=== PATIENT | male | born 1970 | race Caucasian/White ===

== ENCOUNTER 2020-08-18 17:51 | Outpatient (REF) | payer OTHER, SELFPAY | END 2020-08-18 17:52 | disposition home or self-care (01) | LOC: HO.LAB 17:51 | PROVIDERS: PCP Internal Medicine Medical Oncology; Visit Provider Internal Medicine | DX: Z20.828 Contact with and (suspected) exposure to other viral communicable diseases (principal) | CPT/HCPCS: C9803; U0003 ==

== ENCOUNTER 2020-12-06 12:54 | Outpatient (REF) | payer OTHER, SELFPAY ==
[2020-12-06 13:19] LABS: MANUAL DIFF FLAG NO
[2020-12-06 13:28] LABS: Basophils Percent Auto 0.7 % (0-2); Eosinophils Absolute Auto 0.1 X10*3/uL (0.0-0.4); Eosinophils Percent Auto 1.8 % (0-4); Hematocrit 47.9 % (42-52); Hemoglobin 15.6 g/dl (14.0-18.0); Imm Gran Abs Auto 0.01 X10*3/uL (0.00-0.03); Imm Gran Pct Auto 0.2 % (0.0-0.4); Lymphocytes Absolute Auto 2.1 X10*3/uL (1.2-4.9); Lymphocytes Percent Auto 37.6 % (20-40); Mean Corpuscular HGB Conc 32.6 g/dl (31.0-36.0); Mean Corpuscular Hemoglobin 30.4 pg (27.0-33.0); Mean Corpuscular Volume 93.4 fL (80-98); Mean Platelet Volume 9.5 fL (9.4-12.4); Monocytes Absolute Auto 0.5 X10*3/uL (0.1-1.2); Neutrophils Absolute Auto 2.9 X10*3/uL (2.0-8.3); Neutrophils Percent Auto 50.7 % (45-73); Platelet Count 277 X10*3/uL (160-400); Red Blood Count 5.13 X10*6/uL (4.60-5.80); White Blood Count 5.7 X10*3/uL (4.8-10.8)
[2020-12-06 14:02] LABS: Alanine Aminotransferase 27 U/L (0-40); Albumin Level 4.6 g/dL (3.5-5.0); Alkaline Phosphatase 126 U/L (39-117); Anion Gap 12 (12-20); Aspartate Amino Transferase 18 U/L (5-37); Bilirubin Total 0.9 mg/dL (0.0-1.0); Blood Urea Nitrogen 14 mg/dL (9-16); Calcium 9.3 mg/dL (8.4-10.2); Carbon Dioxide 28 mmol/L (22-29); Chloride 105 mmol/L (96-108); Cholesterol 200 mg/dL; Estimated Glomerular Filt Rate > 60; Glucose Fasting 100 mg/dL (60-99); HDL Cholesterol 62 mg/dL; LDL Cholesterol Calculated 120 mg/dl; Potassium 4.5 mmol/L (3.3-5.1); Sodium 140 mmol/L (135-145); Total Protein 7.7 g/dL (6.5-8.0); Triglycerides 94 mg/dL
[2020-12-06 14:13] LABS: Prostate Specific Antigen 0.34 ng/mL (<0.05-4.0)
== END 2020-12-06 12:55 | disposition home or self-care (01) ==
LOC: HO.LAB 12:54
PROVIDERS: PCP Internal Medicine Medical Oncology; Visit Provider Internal Medicine Medical Oncology
DX: Z00.00 Encounter for general adult medical examination without abnormal findings (principal); Z12.5 Encounter for screening for malignant neoplasm of prostate; E66.3 Overweight
CPT/HCPCS: 36415; 80053; 80061; 84153; 85025

== ENCOUNTER 2021-03-22 07:46 | Day surgery (SDC) | payer OTHER, SELFPAY ==
[2021-03-17 09:02] VITALS: BMI 25.5
--- NOTE | 2021-03-21 10:16 | P.CONAN_ITS ---
Documented by User: Seema Ellis 03/21/21 10:17 HPI - Anesthesia Eval Consult details Narrative: 50yo M for Colonoscopy [facility] Past Medical History Medical History No pertinent past medical history Surgical History Surgical History No pertinent past surgical history Social History Social History Household Members: Spouse Alcohol intake: current Alcohol intake frequency: a few times a week Patient Tobacco Use Status: Former Tobacco user Quit Date: 2011 Tobacco use type: Cigarette Use of substances other than those prescribed or required for medical reasons: No Are you DNR?: No Advance Directives: No Advance Directives Information Provided: Yes Meds Allergies Allergy/AdvReac Type Severity Reaction Status Date / Time [place] nut Allergy Unknown Unknown Verified 03/22/21 08:17 Home Medications Medication Instructions Recorded Confirmed Last Taken Type ibuprofen 03/17/21 03/17/21 Unknown History multivitamin 1 tab PO DAILY 03/17/21 03/17/21 Unknown History Exam Exam Date and Time: March 21, 2021 1016 Height,Weight and Vital Signs: Height 5 ft 7 in Weight 73.936 kg Assessment and Plan Assessment Anesthesia Assessment: Chart Reviewed Documented by User: Marlon Ricketts 03/22/21 08:59 [facility] Past Medical History Medical History No pertinent past medical history Surgical History Surgical History No pertinent past surgical history Social History Social History Household Members: Spouse Alcohol intake: current Alcohol intake frequency: a few times a week Patient Tobacco Use Status: Former Tobacco user Quit Date: 2011 Tobacco use type: Cigarette Use of substances other than those prescribed or required for medical reasons: No Are you DNR?: No Advance Directives: No Advance Directives Information Provided: Yes Meds Allergies Allergy/AdvReac Type Severity Reaction Status Date / Time [place] nut Allergy Unknown Unknown Verified 03/22/21 08:17 Home Medications Medication Instructions Recorded Confirmed Last Taken Type ibuprofen 03/17/21 03/17/21 Unknown History multivitamin 1 tab PO DAILY 03/17/21 03/17/21 Unknown History Exam Airway Mallampati Class: II TM Dist: >3cm Neck ROM: Full Loose/Missing/Broken Teeth: No Heart: [id number] Lungs: cta b/l Assessment and Plan Assessment Anesthesia Assessment: Anesthesia Plan Discussed, PAT Visit and Chart Reviewed Final Anesthetic Review NPO: Yes ASA Class: II Final Preanesthetic Review: No Changes in Pt Med Stat, Meds/Allgs Chart Reviewed, Consent Obtained/Reviewed and Anes Risks/Benef Reviewed Patient Risk: Low Procedure Risk: Low Assessment/Block/Sedation in SS: Assess/Block/Sedation-SS Anesthetic Plan Anesthetic Plan: MAC: and Agree w/ Assess. and Plan Disposition: Standard PACU
[2021-03-22 08:20] VITALS: BMI 25.0
[2021-03-22 08:30] VITALS: BP 137/80; PULSE 80; RESP 16; TEMP 36.9; O2SAT 99
[2021-03-22] MEDS: Lactated Ringers 1,000 ML 100 ML IVCONT (08:43)
--- NOTE | 2021-03-22 08:51 | P.HPSUR_ITS ---
Pre-Procedural Eval Section A Date of Service: 03/22/21 The patient is an INPATIENT: No Changes since office visit: No Cold of Flu in the past 2 weeks, No New Medical Problems, No Changes in Medication and No Patient answered all questions The History & Physical has been completed within 30 days and I have reviewed it.: Yes Section B Chief Complaint: screening Allergies: Allergies Allergy/AdvReac Type Severity Reaction Status Date / Time [place] nut Allergy Unknown Unknown Verified 03/22/21 08:17 Plan I have reviewed the history and physical and performed a pertinent physical examination on my patient. No changes have occurred unless specified.
--- NOTE | 2021-03-22 09:20 | PM.OP ---
Brief Operative Note Date of Service: 03/22/21 Pre-op diagnosis: screening Post-op diagnosis: same Surgeon: Harshil Galvez Anesthesia: MAC Was an Press Helper used for this Procedure?: No Estimated blood loss (mL): 0 Pathology: none sent Condition: stable Disposition: PACU
[2021-03-22 09:22] VITALS: BP 116/68; PULSE 70; RESP 18; TEMP 36.2; O2SAT 98
[2021-03-22 09:36] VITALS: BP 122/62; PULSE 72; RESP 18; TEMP 36.1; O2SAT 98
--- NOTE | 2021-03-22 11:05 | OP_ITS ---
SURGEON: Harshil Galvez MD INDICATIONS: Colon cancer screening. PREOPERATIVE DIAGNOSIS: POSTOPERATIVE DIAGNOSIS: PROCEDURE PERFORMED: Colonoscopy to the terminal ileum. ESTIMATED BLOOD LOSS: COMPLICATIONS: ANESTHESIA: Monitored anesthesia care. ASSISTANTS: SPECIMENS: DESCRIPTION OF PROCEDURE: History and physical performed. The risks and benefits of the procedure were explained to the patient. Informed consent was obtained. The patient was placed in the left lateral decubitus position. A digital rectal exam was performed and was found to be normal. The Olympus pediatric video colonoscope was introduced into the rectum and advanced to the cecum without difficulty. The cecum was identified by transillumination, palpation, and identification of the ileocecal valve. Examination was performed and the scope was removed. He tolerated the procedure well and was taken to the recovery area in stable condition. FINDINGS: The terminal ileum was examined and appeared normal. The visualized colonic mucosa was normal. The quality of prep was good. No polyps were identified. There were a few diverticula in the sigmoid colon. Retroflexed examination showed some small internal hemorrhoids. IMPRESSION: Normal colonoscopy. RECOMMENDATIONS: 1. Followup as needed. 2. Repeat colonoscopy is recommended in 10 years for average risk individuals. MD GURMEET Ramachandran/ADAIR / [id number]
== END 2021-03-22 10:20 | disposition home or self-care (01) ==
PROVIDERS: PCP Internal Medicine Medical Oncology; Visit Provider Internal Medicine Gastroenterology
PROC: 0DJD8ZZ Inspection of Lower Intestinal Tract, Via Natural or Artificial Opening Endoscopic (ICD-10-PCS; CPT 45378; principal; 2021-03-22 08:50)
DX: Z12.11 Encounter for screening for malignant neoplasm of colon (principal); K57.30 Diverticulosis of large intestine without perforation or abscess without bleeding; K64.8 Other hemorrhoids; Z79.1 Long term (current) use of non-steroidal anti-inflammatories (NSAID); Z87.891 Personal history of nicotine dependence
CPT/HCPCS: 45378

== ENCOUNTER 2021-06-16 10:47 | Outpatient (REF) | payer OTHER, SELFPAY ==
--- NOTE | ~2021-06-16 | XR_ITS ---
EXAMINATION: LUMBAR SPINE. SACRUM AND COCCYX 2 VIEWS. CLINICAL INFORMATION: Low back pain. COMPARISON: None TECHNIQUE: Lumbar spine 3 views. Sacrum and coccyx 3 views. FINDINGS: Lumbar spine: There is mild levoscoliosis. There is normal lumbar lordosis with mild loss of L3-L4 and L5-S1 disc heights. Rest the disc heights are normal. The vertebral heights and alignment is normal. No lytic or sclerotic process seen. SI joints: There is normal symmetry of bilateral SI joints without any sclerosis. No acute fracture or lytic process seen. XR/XR sacrum coccyx min 2V IMPRESSION: Levoscoliosis with mild degenerative disc changes L3-L4 and L5-S1 disc levels.
--- NOTE | ~2021-06-16 | XR_ITS ---
EXAMINATION: LUMBAR SPINE. SACRUM AND COCCYX 2 VIEWS. CLINICAL INFORMATION: Low back pain. COMPARISON: None TECHNIQUE: Lumbar spine 3 views. Sacrum and coccyx 3 views. FINDINGS: Lumbar spine: There is mild levoscoliosis. There is normal lumbar lordosis with mild loss of L3-L4 and L5-S1 disc heights. Rest the disc heights are normal. The vertebral heights and alignment is normal. No lytic or sclerotic process seen. SI joints: There is normal symmetry of bilateral SI joints without any sclerosis. No acute fracture or lytic process seen. XR/XR lumbar spine 2-3V IMPRESSION: Levoscoliosis with mild degenerative disc changes L3-L4 and L5-S1 disc levels.
== END 2021-06-16 10:48 | disposition home or self-care (01) ==
LOC: HO.XRAY 10:47
PROVIDERS: PCP Internal Medicine Medical Oncology; Visit Provider Internal Medicine Medical Oncology
DX: M54.50 Low back pain, unspecified (principal)
CPT/HCPCS: 72100; 72220